=== PATIENT | male | born 1985 | race Caucasian/White ===

== ENCOUNTER 2018-06-16 01:23 | Emergency (ER) | payer BC, MEDICARE ==
--- NOTE | 2018-06-16 01:43 | ED Physician Documentation ---
PD HPI CHEST PAIN - Stated complaint Stated Complaint: CHEST PAIN - Chief complaint Chief Complaint: Cardiac - History obtained from History obtained from: Patient, Family - History of Present Illness Timing - onset: How many hours ago (2) Timing - onset during: Rest Timing - duration: Seconds (2-3) Timing - details: Abrupt onset, Other (sharp, shooting) Pain level max: 8 Pain level now: 1 Quality: Sharp Location: Left chest Radiation: No: Jaw, Neck, Back, Abdominal, Left upper extremity, Right upper extremity Improved by: Nothing Worsened by: No: Exertion, Inspiration, Eating, Movement, Palpation, Position Associated symptoms: No: Shortness of air, Diaphoresis, Nausea, Vomiting, Feeling faint / dizzy, General Weakness, Palpitations, Cough Similar symptoms before: Has not had sx before Recently seen: Not recently seen Review of Systems Ten Systems: 10 systems reviewed and negative Constitutional: denies: Fever, Chills Cardiac: denies: Palpitations Respiratory: denies: Cough, Wheezing Skin: denies: Rash Musculoskeletal: denies: Neck pain, Back pain Neurologic: denies: Focal weakness, Numbness PD PAST MEDICAL HISTORY - Past Medical History Past Medical History: No Cardiovascular: Hypertension Other Past Medical History: Lebers hereditary optic neuropathy - Present Medications Home Medications: Ambulatory Orders Medication Instructions Recorded Confirmed Buprenorphine HCl/Naloxone HCl 0.5 film DAILY 06/16/18 06/16/18 [Suboxone 8 mg-2 mg Sl Film] Lisinopril 5 mg PO DAILY 06/16/18 06/16/18 - Allergies Allergies/Adverse Reactions: Allergies Allergy/AdvReac Type Severity Reaction Status Date / Time No Known Drug Allergies Allergy Verified 06/16/18 01:31 - Living Situation Living Situation: reports: With family Living Arrangement: reports: At home - Social History Does the pt drink ETOH?: Yes - Family History Family history: reports: Non contributory PD ED PE NORMAL - Vitals Vital signs reviewed: Yes - General General: Alert and oriented X 3, No acute distress, Well developed/nourished - HEENT HEENT: PERRL, Ears normal, Moist mucous membranes - Neck Neck: Supple, no meningeal sign - Cardiac Cardiac: RRR, No murmur, Strong equal pulses - Respiratory Respiratory: No respiratory distress, Clear bilaterally - Abdomen Abdomen: Soft, Non tender, Non distended - Derm Derm: Warm and dry - Extremities Extremities: No edema, No calf tenderness / cord - Neuro Neuro: Alert and oriented X 3 - Psych Psych: Normal mood, Normal affect - Free text exam Free text exam: No chest wall tenderness. No crepitus. No ecchymosis Results - Vitals Vitals: Vital Signs - 24 hr 06/16/18 06/16/18 06/16/18 01:28 01:33 02:35 Temperature 37.1 C Heart Rate 98 100 86 Respiratory 16 28 H 16 Rate Blood Pressure 161/101 H 157/102 H 144/96 H O2 Saturation 98 100 98 Oxygen O2 Source Room air - EKG (time done) 131 Rate: Rate (enter#) (90) Rhythm: NSR Douglas: Normal Intervals: Normal SD QRS: Normal Ischemia: ST elevation c/w repol - Labs Labs: Laboratory Tests 06/16/18 06/16/18 06/16/18 01:40 01:40 01:40 WBC 3.7 L RBC 3.57 L Hgb 13.7 L Hct 38.5 L MCV 108.0 H MCH 38.4 H MCHC 35.5 RDW 13.3 Plt Count 186 MPV 7.5 Neut # (Auto) 2.1 Lymph # (Auto) 1.0 L Kingsbury # (Auto) 0.5 Eos # (Auto) 0.0 Baso # (Auto) 0.1 Absolute Nucleated RBC 0.00 Nucleated RBC % 0.0 Sodium 131 L Potassium 3.9 Chloride 93 L Carbon Dioxide 23 Anion Gap 15.0 H BUN 5 L Creatinine 0.7 Estimated GFR (MDRD) 132 Glucose 111 H Calcium 9.2 Total Bilirubin 0.7 AST 62 H ALT 47 Alkaline Phosphatase 59 Troponin I < 0.04 Total Protein 7.3 Albumin 5.4 Globulin 1.9 L Albumin/Globulin Ratio 2.8 H Lipase 32 - Rads (name of study) Chest x-ray Radiology: Prelim report reviewed, EMP read contemporaneously, See rad report (No acute disease) PD MEDICAL DECISION MAKING - ED course Complexity details: reviewed results, re-evaluated patient, considered differential (No ST elevation IN, no aortic dissection, no PE, no tension pneumothorax, no aortic aneurysm), d/w patient, d/w family ED course: 32-year-old male with sharp intermittent left-sided chest pain. asymptomatic here. Well-appearing, nontoxic. No acute findings on laboratory testing, EKG or chest x-ray. No evidence of pericarditis, myocarditis, pericardial effusion. No JVD. Mild hyponatremia. We will have him follow-up with his doctor for further care. Patient counseled regarding signs and symptoms for which I believe and urgent re-evaluation would be necessary. Patient with good understanding of and agreement to plan and is comfortable going home at this time This document was made in part using voice recognition software. While efforts are made to proofread this document, sound alike and grammatical errors may occur. Departure - Departure Disposition: 01 Home, Self Care Clinical Impression: Hyponatremia Chest pain Qualifiers: Chest pain type: unspecified Qualified Code(s): R07.9 - Chest pain, unspecified Condition: Good Instructions: ED Chest Pain Atypical Unkn Cause Follow-Up: your,doctor in 1 week [Other] Comments: Continue your high blood pressure medication at home. Return if you worsen. Follow-up with your doctor for further care.
[2018-06-16 02:04] LABS: BASOPHILS # (AUTO) 0.1 10^3/uL (0.0-0.1); BASOPHILS % (AUTO) 2.6 %; EOSINOPHILS % (AUTO) 0.5 %; HGB - HEMOGLOBIN 13.7 g/dL (14.0-18.0); MEAN CORPUSCULAR HEMOGLOBIN 38.4 pg (27.0-31.0); MEAN CORPUSCULAR HGB CONC 35.5 g/dL (32.0-36.0); MEAN PLATELET VOLUME 7.5 fL (7.4-11.4); MONOCYTES # (AUTO) 0.5 10^3/uL (0.0-1.0); MONOCYTES % (AUTO) 12.3 %; NEUTROPHILS # (AUTO) 2.1 10^3/uL (1.5-6.6); NEUTROPHILS % (AUTO) 56.6 %; PLT - PLATELET COUNT 186 10^3/uL (130-450); RED BLOOD COUNT 3.57 10^6/uL (4.70-6.10); RED CELL DISTRIBUTION WIDTH 13.3 % (12.0-15.0); WHITE BLOOD COUNT 3.7 x10^3/uL (4.8-10.8)
--- NOTE | 2018-06-16 02:08 | XRAY Report ---
Reason: chest pain Procedure Date: 06/16/2018 Accession Number: [id number] / [id number] Procedure: XR - Chest 1 View X-Ray CPT Code: 00820 FULL RESULT: EXAM: CHEST RADIOGRAPHY EXAM DATE: 06/16/2018 01:54 AM. CLINICAL HISTORY: Chest pain. COMPARISON: None. TECHNIQUE: 1 view. FINDINGS: Lungs/Pleura: No alveolar consolidation or pleural effusion seen. No pneumothorax. Mediastinum: Within exam limitations, the cardiomediastinal contour is normal. Other: None. IMPRESSION: 1. No acute abnormality seen in the chest. RADIA
[2018-06-16 02:11] LABS: ALBUMIN 5.4 g/dL (3.2-5.5); ALBUMIN/GLOBULIN RATIO 2.8 (1.0-2.2); BILIRUBIN,TOTAL 0.7 mg/dL (0.2-1.0); CALCIUM 9.2 mg/dL (8.5-10.3); CREATININE 0.7 mg/dL (0.6-1.2); TOTAL PROTEIN 7.3 g/dL (6.7-8.2)
[2018-06-16 02:38] VITALS: BP 144/96
== END 2018-06-16 02:38 | disposition home or self-care (01) ==
LOC: ED 01:23
DX: E87.1 Hypo-osmolality and hyponatremia (principal); R07.9 Chest pain, unspecified; I10 Essential (primary) hypertension
CPT/HCPCS: 36415; 71045; 80053; 83690; 84484; 85025; 93005; 99284

== ENCOUNTER 2019-08-28 15:09 | Outpatient (CLI) | payer MEDICARE ==
--- NOTE | 2019-08-28 15:58 | XRAY Report ---
Reason: NECK PAIN Procedure Date: 08/28/2019 Accession Number: [id number] / [id number] Procedure: WCP - Cervical Spine 2 View CPT Code: Final Report FULL RESULT: PROCEDURE: Cervical Spine 2 View INDICATIONS: NECK PAIN TECHNIQUE: 3 view(s) of the cervical spine were acquired. COMPARISON: None. FINDINGS: Bones: No fractures or dislocations to the C7 level. The lateral masses of C1 appear intact on the odontoid view. No suspicious bony lesions. Soft tissues: No prevertebral soft tissue swelling. IMPRESSION: No acute fracture. No osseous lesion. If symptoms and/or clinical suspicion for pathology continue, further assessment with repeat plain films, or advanced imaging (e.g., CT, MRI, or bone scan) is recommended for further assessment. Reviewed by: Zion Fontanez MD on 08/28/2019 3:56 PM PDT Approved by: Zion Fontanez MD on 08/28/2019 3:56 PM PDT Station ID: [id number]
== END 2019-08-28 23:59 | disposition home or self-care (01) ==
LOC: DI.WCP 15:09
PROVIDERS: ATTEND Family Medicine
DX: M54.2 Cervicalgia (principal)
CPT/HCPCS: 72040